=== PATIENT | female | born 1975 | race Caucasian/White ===

== ENCOUNTER 2019-12-10 07:37 | Outpatient (CLI) | payer BC, SELFPAY ==
--- NOTE | ~2019-12-10 | NM_ITS ---
EXAMINATION: NM bone scan whole body DATE: 12/10/2019 13:47 INDICATION: Prostatic breast cancer TECHNIQUE: 23.6 mCi Tc-99m HDP was administered intravenously. Delayed whole-body scintigrams were o btained. COMPARISON: Bone scan dated 09/05/[address] dated 12/10/2019. FINDINGS: Significant interval progression in now multiple numerous scattered subtle foci of increased uptake i ncluding numerous lesions in the spine, sternum, ribs and pelvis. A few additional lesions in the sku ll, mandible and right clavicle, proximal bilateral femurs, proximal right humerus and likely distal right femur. IMPRESSION: 1. Interval progression in now widespread osseous metastatic disease throughout the axial and appendi cular skeleton. Reviewed, dictated and finalized at location A. CENTER CONSULTANT IMPRESSION: 1. Interval progression in now widespread osseous metastatic disease throughout the axial and appendicular skeleton.
--- NOTE | ~2019-12-10 | CT_ITS ---
EXAMINATION: CT chest abdomen pelvis w con DATE: 12/10/2019 08:44 INDICATION: Metastatic breast cancer TECHNIQUE: Transaxial computed tomographic images of the chest, abdomen, and pelvis were obtained aft er the administration of 100 cc of Omnipaque 350 intravenous contrast. The dose-length product (DLP) was 838.19 mGy-cm. Automated exposure control and iterative reconstruction technique were employed. COMPARISON: 09/05/2019, 09/19/2018 FINDINGS: CHEST CT: The lungs are free of acute opacities. There is no pleural effusion or pneumothorax. No pathologicall y enlarged thoracic lymph nodes are identified. The heart size is normal. Surgical changes are noted in the left breast. There is worsened metastatic disease of the thoracic spine, particularly at T11 a nd T12. ABDOMEN/PELVIS CT: The liver is diffusely low in attenuation when compared with the spleen, consistent with hepatic stea tosis. There is a 9 mm hypoattenuating area in liver segment IVB on image 124 which is not definitely identified on prior examinations. The spleen, pancreas, and adrenal glands are normal. The kidneys a re unremarkable. No pathologically enlarged abdominal or pelvic lymph nodes are identified. There is no free intraperitoneal gas or evidence of bowel obstruction. The appendix is normal. When compared t o the PET/CT from 2018, there is new and worsening metastatic disease lumbar spine and pelvis. A comp ression fracture has developed at L3. There is a chronic compression fracture of L4. IMPRESSION: 1. New 9 mm hypoattenuating lesion of the right hepatic lobe of unclear etiology, possibly metastatic disease. 2. Worsening osseous metastatic disease. Reviewed, dictated and finalized at location A. T SECURITY OFFICER IMPRESSION: 1. New 9 mm hypoattenuating lesion of the right hepatic lobe of unclear etiolog y, possibly metastatic disease. 2. Worsening osseous metastatic disease.
[2019-12-10 08:28] LABS: Blood Urea Nitrogen 18 mg/dL (8-26); Estimated Glomerular Filt Rate 44
== END 2019-12-10 07:38 | disposition home or self-care (01) ==
LOC: ANHIMG 07:45
PROVIDERS: Visit Provider Internal Medicine Hematology & Oncology
DX: C50.919 Malignant neoplasm of unspecified site of unspecified female breast (principal); C79.51 Secondary malignant neoplasm of bone; K76.9 Liver disease, unspecified
CPT/HCPCS: 71260; 74177; 78306; A9561; Q9967

== ENCOUNTER 2019-12-26 17:39 | Inpatient (IN) | payer BC, SELFPAY ==
--- NOTE | ~2019-12-26 | XR_ITS ---
EXAMINATION: XR chest 1V portable 12/26/2019 18:21 INDICATION: Liver. History of breast cancer. PROCEDURE: AP portable chest COMPARISON: No prior studies for comparison. FINDINGS: The lungs are clear. The cardiomediastinal silhouette is within normal limits. There are no pleural effusions. There is no pneumothorax suspected. IMPRESSION: 1: NO ACUTE CARDIOPULMONARY DISEASE. Reviewed, dictated and finalized at location A.
--- NOTE | ~2019-12-26 | CT_ITS ---
EXAMINATION: CTA chest PE protocol DATE: 12/26/2019 23:59 INDICATION: Atrial fibrillation with rapid ventricular response. Metastatic breast cancer. TECHNIQUE: Computed tomography angiography (CTA) of the chest was performed with 100 mL Omnipaque-350 intravenous contrast timed to evaluate the pulmonary arteries. Coronal maximum intensity projection 3D-reconstructions were created by the technologist. Automated exposure control and iterative reconst ruction technique were employed. Exam dose: 549.69 mGy-cm total exam DLP. COMPARISON: 12/26/2019 portable AP chest 12/10/2019 CT chest abdomen pelvis FINDINGS: The pulmonary arteries are moderately opacified with contrast material, without evidence of pulmonary embolism. No thoracic aortic aneurysm or dissection. Normal heart size. No pericardial or pleural effusion. No pulmonary infiltrate or consolidation or pulmonary mass lesion is detected. Hepatic steatosis. Incidentally noted is some nonspecific perinephric stranding and heterogeneous enhancement of the upp er pole of the left kidney; recommend clinical correlation for pyelonephritis. There is metastatic disease of the skeleton involving particularly lower thoracic vertebrae., With ev idence of sternal and rib involvement as well. IMPRESSION: No evidence of pulmonary embolism Hepatic steatosis Osseous metastatic disease Cannot exclude pyelonephritis on the left Reviewed, dictated and finalized at Location A. Reviewed, dictated and finalized at location A.
--- NOTE | 2019-12-26 17:41 | ED.BACK ---
HPI - Back Pain/Injury General Chief Complaint: Back Pain/Injury Stated Complaint: BACK PAIN Time Seen by Provider: 12/26/19 17:41 Source: patient Mode of arrival: EMS Limitations: no limitations History of Present Illness HPI Narrative: A 44 y/o female presents to the ED, via EMS, with c/o severe lower back pain. Pt states that she has a diagnosis of metastatic breast cancer with multiple mets to her vertebra. Dr. Mcclelland is her oncologist, and she is currently prescribed Tramadol and muscle relaxers with no relief. Pt reports rt hip pain, but denies ABD pain. MD elicited complaint: back pain (Lower) Pertinent past history: other (Cancer) Severity: severe Location: right lower back and left lower back Relieving factors: none Associated symptoms: other (Right hip pain) Treatments prior to arrival: other (Tramadol, muscle relaxers) Related Data Home Medications Medication Instructions Recorded Confirmed alprazolam 0.25 mg PO DAILY PRN 12/25/19 12/27/19 chlorhexidine gluconate 15 ml BUCCAL BID PRN 12/25/19 12/27/19 clobetasol-emollient 1 applic TOPICAL BID 12/25/19 12/27/19 denosumab [Xgeva] 120 mg SUBCUT ONCE 12/25/19 12/27/19 everolimus (antineoplastic) 10 mg PO DAILY 12/25/19 12/27/19 [Afinitor] letrozole 2.5 mg PO DAILY 12/25/19 12/27/19 melatonin 20 mg PO HS PRN 12/25/19 12/27/19 metoprolol succinate 50 mg PO DAILY 12/25/19 12/27/19 venlafaxine 75 mg PO DAILY 12/25/19 12/26/19 cyclobenzaprine 20 mg Q8H PRN 12/26/19 12/26/19 hydrocodone-acetaminophen 1 tablet PO TID PRN 12/26/19 12/27/19 Allergies Allergy/AdvReac Type Severity Reaction Status Date / Time prochlorperazine Allergy Intermediate Other Verified 06/12/18 14:08 latex Allergy Unknown Itching Verified 06/12/18 14:08 Review of Systems Review of Systems: All systems reviewed & are unremarkable except as noted in HPI and below Gastrointestinal: Gastrointestinal: Denies abdominal pain Musculoskeletal: Musculoskeletal: Reports back pain (Lower) and Reports arthralgias (Right hip) [facility] Past Medical History Medical History (Updated 12/27/19 @ 09:52 by Anaya Hernandez MD) Bone metastasis Bone scan December 10, 2019 demonstrated increased uptake in lesions of the spine, sternum, ribs and pelvis, additional lesions in the skull, mandible, right clavicle, proximal bilateral femurs, proximal right humerus and distal right femur Depression Hepatic metastases CT of the chest abdomen pelvis October 09, 2020 demonstrated new 9 mm hypoattenuating lesion the right hepatic lobe of unclear etiology possibly metastatic disease, worsening osseous metastatic disease Hypertension Metastatic breast cancer Diagnosed March 2018 Pathologic compression fracture of lumbar vertebra L3 and L4 Surgical History Surgical History (Updated 12/27/19 @ 03:02 by Amada Campos DO) No pertinent past surgical history Family History Family History (Updated 12/27/19 @ 03:02 by Amada Campos DO) Mother Vulvar cancer Hypertension Father Heart disease Cerebrovascular accident Social History Social History (Updated 12/27/19 @ 03:04 by Amada Campos DO) Smoking status: Never smoker Tobacco type: cigars Additional smoking assessment comments: Smokes a cigar once or twice a year. Alcohol intake: current Drinks per week: 0 Alcohol use details: In the distant past she would use alcohol on occasion and in moderation. Since her breast cancer diagnosis has not drank alcohol at all. Substance use: never Living arrangements: with family Additional living arrangements comments: The patient lives with her of 8 years and her youngest child. Children are ages 9 and 19. Her older son lives with his dad. 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 Gender identity (if verbalized by the patient): Female Spiritual care concerns: No Ag
[2019-12-26 17:51] VITALS: BP 155/94; PULSE 162; RESP 16; TEMP 36.6; O2SAT 95
--- NOTE | 2019-12-26 18:06 | ECG_ITS ---
Measurements Intervals [place] Rate: 151 P: 63 MD: 123 QRS: 19 QRSD: 84 T: 50 QT: 321 QTc: 510 Interpretive Statements SINUS TACHYCARDIA NONSPECIFIC ST & T-WAVE ABNORMALITY- DIFFUSE LEADS BASELINE WANDER- II, III, V4-V6 ABNORMAL ECG Electronically Signed On 12-27-2019 6:56:01 CDT by Greg Stone D.O.
[2019-12-26] MEDS: METOCLOPRAMIDE HCL INJ 10 MG/2 ML VIAL IV PUSH (18:18)
[2019-12-26] MEDS: SODIUM CHLORIDE 0.9% IV 1,000 ML 999 ML IV CONT ×2 (18:19→20:37)
[2019-12-26 18:22] LABS: Basophils Absolute Auto 0.1 K/mm3 (0.0-0.1); Basophils Percent Auto 1.1 % (0.2-1.2); Hematocrit 39.2 % (37.0-47.0); Hemoglobin 13.3 g/dL (12.0-15.0); Immature Granulocyte Absolute 0.07 K/mm3 (0.00-0.031); Immature Granulocyte Percent A 1.5 % (0-0.5); Lymphocytes Absolute Auto 1.38 K/mm3 (0.9-3.2); Lymphocytes Percent Auto 30.4 % (18.3-44.2); Mean Corpuscular HGB Conc 33.9 g/dl (32-36); Mean Corpuscular Volume 97.3 fl (80-100); Mean Platelet Volume 10.2 fl (7.4-10.4); Monocytes Absolute Auto 0.4 K/mm3 (0.1-0.6); Monocytes Percent Auto 7.9 % (2.6-8.5); Neutrophils Absolute Auto 2.7 K/mm3 (1.3-6.7); Neutrophils Percent Auto 59.1 % (45.5-73.1); Platelet Count Result 227 k/mm3 (150-375); Red Blood Count 4.03 M/mm3 (4.2-5.4); Red Cell Distribution Width 15.9 % (11.5-14.5); White Blood Count 4.5 K/mm3 (4.5-10.0)
[2019-12-26 18:29] LABS: Prothrombin Time 12.5 Seconds (11.1-14.7)
[2019-12-26 18:30] LABS: Partial Thromboplastin Time 29.7 SECONDS (22.3-36.8)
[2019-12-26 18:31] LABS: Lactic Acid Reflex 1.4 mmol/L (0.7-2.1)
[2019-12-26 18:45] LABS: Alanine Aminotransferase 29 U/L (4-35); Alkaline Phosphatase 127 U/L (38-126); Aspartate Amino Transferase 53 U/L (14-36); Bilirubin,Total 0.6 mg/dL (0.2-1.3); Blood Urea Nitrogen 27 mg/dL (7-17); Calcium 10.8 mg/dL (8.4-10.2); Carbon Dioxide 26 mmol/L (22-30); Chloride 96 mmol/L (98-107); Estimated CRCL calculation 67 ml/min; Estimated Glomerular Filt Rate 54; Glucose 145 mg/dL (65-105); Potassium 3.7 mmol/L (3.4-5.0); Sodium 134 mmol/L (137-145)
[2019-12-26] MEDS: MORPHINE SULFATE 4 MG/ML INJ IV PUSH (19:09)
[2019-12-26 19:33] LABS: CRP > 45.0 mg/dL (<1.0)
--- NOTE | 2019-12-26 20:00 | PC.NURSE ---
Tried to cath pt 2 times without success. Will inform
[2019-12-26 21:09] VITALS: BP 128/80; PULSE 139; RESP 13
[2019-12-26] MEDS: HYDROMORPHONE HCL 1 MG/ML INJ 0.5 MG IV PUSH (21:50)
[2019-12-26 22:00] VITALS: PULSE 146
[2019-12-26 22:18] LABS: Add Urine Microscopic? YES; Appearance Urine Cloudy (Clear); Bacteria Urine 1+ /hpf; Bilirubin Urine Negative (Negative); Blood Urine 3+ (Negative); Color Urine Yellow (Yellow); Glucose Urine UA Negative (Negative); Ketones Urine Negative (Negative); Leukocyte Esterase Ur 3+ LEU/UL (Negative); Mucus Urine Rare /lpf; Nitrate Urine Positive (Negative); Protein Urine 1+ mg/dL (Negative); Specific Grav Ur 1.015 (1.001-1.035); Squamous Epithelial Cell Urine Rare /hpf (Few); Urobilinogen Urine Negative mg/dL (<2.0); WBC Urine >75 /hpf
[2019-12-26 22:26] VITALS: BP 226/191; PULSE 148; RESP 24; TEMP 37.3; O2SAT 99; BMI 32.8
[2019-12-26] MEDS: DEXAMETHASONE SOD PHOS INJ 4 MG/ML VIAL IV PUSH (22:43)
--- NOTE | 2019-12-26 23:08 | PM.IMHP ---
H&P: [facility] History of Present Illness Chief complaint: breast cancer with bone metastsis,urinary tract in Narrative: Date and time of patient contact: 12/26/2019 at 10:30 p.m. Becca Burden is a 44 year old female with a past medical history of depression, hypertension and metastatic breast cancer to the bone who presented to the ER due to intractable back pain. The patient has multiple metastatic lesions to her spine. She had a repeat bone scan and CT scan and mid November which demonstrated worsening metastatic disease. The patient had been taking tramadol 50 mg and Flexeril 20 mg as needed for pain. Her pain medication was recently changed today to [place] but she had not yet filled the prescription. Her pain is unrelieved despite these medications. She also has some pain in her right hip. The patient has been having difficulty with urinary incontinence. She states that she will have to go to the bathroom but cannot get up and move fast enough to get to the bathroom due to her pain. She denies any cough, congestion, fevers or chills. She has not noticed any palpitations, shortness of breath or orthopnea. She does snore but has never been tested for sleep apnea. She denies any paresthesias or leg weakness. Her back pain is severe and 10/10 in intensity. It is made worse with trying to get up and ambulate or with movement. Her pain is currently a 5/10 intensity after receiving half a mg of Dilaudid in the ER and 2.5 mg IV of Valium x1. The patient reports she also has pain in her right hip/pelvis region of her abdomen. At the time of her diagnosis she had multiple metastatic lesions. She never had a lumpectomy or mastectomy. Review of Systems Review of Systems: Narrative: Except as documented in the HPI, all other systems were reviewed and are negative. [facility] Past Medical History Medical History (Updated 12/27/19 @ 03:16 by Amada Campos DO) Bone metastasis Bone scan December 10, 2019 demonstrated increased uptake in lesions of the spine, sternum, ribs and pelvis, additional lesions in the skull, mandible, right clavicle, proximal bilateral femurs, proximal right humerus and distal right femur Depression Hepatic metastases CT of the chest abdomen pelvis October 09, 2020 demonstrated new 9 mm hypoattenuating lesion the right hepatic lobe of unclear etiology possibly metastatic disease, worsening osseous metastatic disease Hypertension Metastatic breast cancer Diagnosed March 2018 Pathologic compression fracture of lumbar vertebra L3 and L4 Surgical History Surgical History (Updated 12/27/19 @ 03:02 by Amada Campos DO) No pertinent past surgical history Family History Family History (Updated 12/27/19 @ 03:02 by Amada Campos DO) Mother Vulvar cancer Hypertension Father Heart disease Cerebrovascular accident Social History Social History (Updated 12/27/19 @ 03:04 by Amada Campos DO) Smoking status: Never smoker Tobacco type: cigars Additional smoking assessment comments: Smokes a cigar once or twice a year. Alcohol intake: current Drinks per week: 0 Alcohol use details: In the distant past she would use alcohol on occasion and in moderation. Since her breast cancer diagnosis has not drank alcohol at all. Substance use: never Living arrangements: with family Additional living arrangements comments: The patient lives with her of 8 years and her youngest child. Children are ages 9 and 19. Her older son lives with his dad. 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 Gender identity (if verbalized by the patient): Female Spiritual care concerns: No Agree to blood products: Yes Meds Home Medications and Allergies Home Medications Medication Instructions Recorded Confirmed Type alprazolam 0.25 mg PO DAILY PRN 12/25/19 12/27/19 History c
[2019-12-27] VITALS (12 sets, daily range): BP systolic 121–154; BP diastolic 75–98; PULSE 110–149; RESP 16–22; TEMP 36.4–37.3; O2SAT 90–99; BMI 33.0
--- NOTE | 2019-12-27 00:35 | ADMGEN ---
This patient, Becca Burden, was admitted to IMU Room 214-01. Patient/family oriented to hospital policies and general routines including ID bracelet, bed and alarms, visiting hours, pain management, procedures, bathroom and other care routines, personal items, smoking policy, room service/diet, and visiting hours. Valuables list has been completed. Information on how to activate the Rapid Response Team has been discussed. Patient/Family are encouraged to report perceived risks to care and to ask questions if they do not understand what they are told or what they should do.
[2019-12-27] MEDS: CYCLOBENZAPRINE HCL 10 MG TABLET 20 MG PO ×4 (00:38→21:17)
[2019-12-27] MEDS: LACTATED RINGERS 1,000 ML 125 ML IV CONT ×3 (00:38→21:16)
[2019-12-27 05:17] LABS: Basophils Percent Auto 0.3 % (0.2-1.2); Hematocrit 25.7 % (37.0-47.0); Hemoglobin 8.5 g/dL (12.0-15.0); Immature Granulocyte Absolute 0.19 K/mm3 (0.00-0.031); Immature Granulocyte Percent A 3.3 % (0-0.5); Lymphocytes Absolute Auto 1.48 K/mm3 (0.9-3.2); Lymphocytes Percent Auto 25.8 % (18.3-44.2); Mean Corpuscular HGB Conc 33.1 g/dl (32-36); Mean Corpuscular Hemoglobin 32.4 pg (26-34); Mean Corpuscular Volume 98.1 fl (80-100); Mean Platelet Volume 9.6 fl (7.4-10.4); Monocytes Absolute Auto 0.4 K/mm3 (0.1-0.6); Monocytes Percent Auto 6.6 % (2.6-8.5); Neutrophils Absolute Auto 3.7 K/mm3 (1.3-6.7); Nucleated Red Blood Cells Perc 0.3 % (0.0-0.2); Platelet Count Result 210 k/mm3 (150-375); Red Blood Count 2.62 M/mm3 (4.2-5.4); Red Cell Distribution Width 15.9 % (11.5-14.5); White Blood Count 5.7 K/mm3 (4.5-10.0)
[2019-12-27 05:29] LABS: Alanine Aminotransferase 25 U/L (4-35); Albumin Level 3.5 g/dL (3.5-5.1); Alkaline Phosphatase 101 U/L (38-126); Aspartate Amino Transferase 47 U/L (14-36); Bilirubin,Total 0.5 mg/dL (0.2-1.3); Blood Urea Nitrogen 19 mg/dL (7-17); Calcium 9.6 mg/dL (8.4-10.2); Carbon Dioxide 26 mmol/L (22-30); Chloride 100 mmol/L (98-107); Estimated CRCL calculation 82 ml/min; Estimated Glomerular Filt Rate > 60; Glucose 174 mg/dL (65-105); Potassium 3.8 mmol/L (3.4-5.0); Sodium 135 mmol/L (137-145)
--- NOTE | 2019-12-27 06:00 | ECG_ITS ---
Measurements Intervals [place] Rate: 124 P: 62 OK: 120 QRS: 28 QRSD: 86 T: 58 QT: 404 QTc: 581 Interpretive Statements SINUS TACHYCARDIA NONSPECIFIC T-WAVE ABNORMALITY- ANT/INF LEADS BASELINE WANDER- I, II, V2-V3 ABNORMAL ECG Electronically Signed On 12-27-2019 11:43:09 CDT by Greg Stone D.O.
[2019-12-27] MEDS: LETROZOLE (*CHEMO) 2.5 MG TABLET PO (08:27)
[2019-12-27] MEDS: METOPROLOL SUCCINATE EXT REL 50 MG TABCR PO (08:27)
[2019-12-27] MEDS: VENLAFAXINE HCL XR 75 MG CAP.ER.24H PO (08:27)
--- NOTE | 2019-12-27 09:45 | PM.IMPN ---
Progress Note: A&P Assessment and Plan (1) Pyelonephritis: Code(s): N12 - Tubulo-interstitial nephritis, not specified as acute or chronic Status: Acute Assessment and Plan: CTA chest with nonspecific perinephric stranding and heterogeneous enhancement of they upper pole of the left kidney with UA suggestive of urinary tract infection. Clinically consistent with pyelonephritis. Urine and blood cultures are pending. Will continue IV ceftriaxone while awaiting final results. Continue IV fluids. Transfer to medical floor as stable. (2) Sepsis: Qualifiers: Sepsis acute organ dysfunction status: without acute organ dysfunction Sepsis type: sepsis due to unspecified organism Qualified Code(s): A41.9 - Sepsis, unspecified organism Code(s): A41.9 - Sepsis, unspecified organism Status: Acute Assessment and Plan: Criteria met on admission. Result of pyelonephritis. Cultures pending as noted above. Continue IV ceftriaxone for now. (3) Sinus tachycardia: Code(s): R00.0 - Tachycardia, unspecified Status: Acute Assessment and Plan: Likely due to combination of dehydration and sepsis. Was started on IV diltiazem in ER but now discontinued. Telemetry reviewed on 12/27/2019 with persistent sinus tachycardia but heart rate 110s to 120 occasionally. Will not restart diltiazem at this time but continue to monitor. Is on metoprolol already for hypertension. Will monitor clinically. Should continue to improve with treatment of infection. (4) Metastatic breast cancer: Code(s): C50.919 - Malignant neoplasm of unspecified site of unspecified female breast Status: Acute Assessment and Plan: Patient feels pain actually already improved with treatment she is receiving for infection. Has been seen by Dr. Brian for palliative radiation therapy but had not yet started. Will continue Flexeril here. Will allow home hydrocodone acetaminophen if needed. Continue home everolimus if able to bring in. Will monitor. (5) Bone metastasis: Code(s): C79.51 - Secondary malignant neoplasm of bone Status: Acute Assessment and Plan: Disease metastatic to bone. Continue pain medication as noted above. (6) Hypertension: Qualifiers: Hypertension type: essential hypertension Qualified Code(s): I10 - Essential (primary) hypertension Code(s): I10 - Essential (primary) hypertension Status: Acute Assessment and Plan: Blood pressure reviewed on 12/27/2019 with mild elevation. Will continue metoprolol. Will monitor. (7) DVT prophylaxis: Code(s): Z29.9 - Encounter for prophylactic measures, unspecified Status: Acute Assessment and Plan: SCDs. Time Spent With Patient Time with patient: 15 - 25 minutes Subjective Date/time seen: 12/27/19 09:45 Interval history: Date of Service: 12/27/2019. Admitted with pyelonephritis, sepsis. Patient with known breast cancer. Already feeling better overall. No current chest pain palpitations. No shortness of breath. No abdominal pain. Denies current urinary symptoms. Review of Systems Review of Systems: Narrative: Feeling better. Constitutional: Constitutional: Denies chills and Denies fever(s) ENT: Denies nasal congestion and Denies nasal discharge Cardiovascular: Cardiovascular: Denies chest pain and Denies palpitations Respiratory: Respiratory: Denies dyspnea Gastrointestinal: Gastrointestinal: Denies abdominal pain, Denies nausea and Denies vomiting Genitourinary: Genitourinary: Denies hematuria Musculoskeletal: Musculoskeletal: Reports back pain Integumentary/Breasts: Skin/Breast: Denies rash Neurologic: Denies headache(s) Psychiatric: Psychiatric: Denies anxiety, Denies confusion and Denies depression Exam Narrative: Exam Narrative: Awake and alert. Const: General: no acute distress HENMT: Mouth: Yes moist mucous membranes Neck:
[2019-12-27 17:41] LABS: Immature Reticulocyte Fraction 14.7 % (3.0-15.9); Reticulocyte Hemoglobin Conten 30.9 pg (28.2-35.7); Reticulocyte Percent 0.88 % (0.7-4.3); Reticulocytes Absolute 0.02 B/L (32.2-175.7)
[2019-12-27 17:53] LABS: Lactate Dehydrogenase 585 U/L (313-618)
--- NOTE | 2019-12-27 18:45 | PC.NURSE ---
This patient, Becca Burden, was transferred to [ [id number]] on 12/27/19 at 1859. Personal belongings sent with patient. Belongings list checked and signed with receiving [ ]. Report given to [Aury @ [phone] ]. Appropriate documentation sent with patient.
[2019-12-27 18:56] LABS: Iron 68 ug/dL (37-170)
--- NOTE | 2019-12-27 18:58 | PC.NURSE ---
transfer from IMU on today to room 244.Resting in bed instructed to call for assistance as needed call light in reach.
[2019-12-27 19:06] LABS: Percent Iron Saturation 28 % (20-50)
--- NOTE | 2019-12-27 23:23 | CONS_ITS ---
DATE OF CONSULTATION: 12/27/2019 REASON FOR CONSULTATION: Metastatic breast cancer. HISTORY OF PRESENTING ILLNESS: This is a 44-year-old pleasant female with history of metastatic breast cancer with bone involvement. She was on endocrine therapy with Femara along with Ibrance since the diagnosis. She was also receiving Lupron injections. She started having worsening of bony metastasis based on the last CT scan done in November. Treatment was switched to Afinitor orally. The patient was also supposed to start Faslodex treatment in my clinic. The patient now came into the ER with complaint of worsening bone pain, especially involving the right side of the hip. She is also going to start radiation therapy treatment. She was on tramadol and Flexeril without much improvement. She was also diagnosed to have urinary tract infection. She denies any fevers and chills. She is feeling much better. Her hemoglobin has dropped since she was admitted to the hospital. She denies any bleeding and bruising. Denies any other complaint. REVIEW OF SYSTEMS: A 12-point review of system was reviewed and as per HPI, otherwise negative. PAST MEDICAL HISTORY: Metastatic breast cancer with bone involvement, depression, hypertension, pathological compression fracture of L3 and L4. PAST SURGICAL HISTORY: None. FAMILY HISTORY: Positive for cardiovascular disease. SOCIAL HISTORY: The patient denies any history of smoking. She drinks occasionally. The patient is . HOME MEDICATIONS: Reviewed. ALLERGIES: REVIEWED. PHYSICAL EXAMINATION: GENERAL: This patient is a well-developed, well-nourished female, in no apparent distress. Alert and oriented. VITAL SIGNS: Per nursing note. HEENT: Normocephalic, atraumatic. Clear oropharynx. LUNGS: Clear to auscultation bilaterally. CARDIOVASCULAR: Regular rate and rhythm. No murmurs. ABDOMEN: Soft, nontender, nondistended. Bowel sounds are positive in all 4 quadrants. No hepatosplenomegaly. EXTREMITIES: No edema. NEURO: Grossly intact. LABORATORY DATA: WBC 5.7, hemoglobin 8.5, MCV 98, platelet 210,000, neutrophils 64%. LDH 585, total bilirubin 0.6. ASSESSMENT AND PLAN: 1. Metastatic breast cancer with bone involvement. The patient had progressive disease based on the last bone scan. She has been complaining of more right leg and right hip pain. She has been referred to Radiation-Oncology for palliative radiation therapy treatment, which she is supposed to start soon. I have changed her treatment to Afinitor and Faslodex. The patient will follow up in the office to start Faslodex injection. 2. Urinary tract infection. The patient is on Rocephin and already feeling better. 3. Anemia. Could be multifactorial due to Afinitor and some element of dilutional anemia. I will check iron studies, vitamin B12 level. The patient will follow up with me in the office for further management of her metastatic breast cancer. NAVDEEP Ivan VÁZQUEZ M.D. FOXER FOXER D I MT: Ricarda
[2019-12-28 04:45] LABS: Hematocrit 25.6 % (37.0-47.0); Hemoglobin 8.4 g/dL (12.0-15.0); Mean Corpuscular HGB Conc 32.8 g/dl (32-36); Mean Corpuscular Hemoglobin 32.7 pg (26-34); Mean Corpuscular Volume 99.6 fl (80-100); Platelet Count Result 215 k/mm3 (150-375); Red Blood Count 2.57 M/mm3 (4.2-5.4); Red Cell Distribution Width 15.9 % (11.5-14.5); White Blood Count 6.2 K/mm3 (4.5-10.0)
[2019-12-28 05:00] LABS: Blood Urea Nitrogen 20 mg/dL (7-17); Calcium 9.2 mg/dL (8.4-10.2); Carbon Dioxide 31 mmol/L (22-30); Chloride 100 mmol/L (98-107); Estimated CRCL calculation 82 ml/min; Estimated Glomerular Filt Rate > 60; Glucose 116 mg/dL (65-105); Potassium 3.7 mmol/L (3.4-5.0); Sodium 136 mmol/L (137-145)
[2019-12-28] MEDS: LACTATED RINGERS 1,000 ML 125 ML IV CONT (05:15)
[2019-12-28] MEDS: CYCLOBENZAPRINE HCL 10 MG TABLET 20 MG PO ×3 (05:42→21:32)
[2019-12-28 06:00] VITALS: BP 136/90; PULSE 101; RESP 16; TEMP 36.4; O2SAT 98
[2019-12-28 09:43] VITALS: PULSE 102
[2019-12-28] MEDS: METOPROLOL SUCCINATE EXT REL 50 MG TABCR PO (09:43)
--- NOTE | 2019-12-28 12:23 | PM.IMPN ---
Progress Note: A&P Assessment and Plan (1) Pyelonephritis: Code(s): N12 - Tubulo-interstitial nephritis, not specified as acute or chronic Status: Acute Assessment and Plan: CTA chest with nonspecific perinephric stranding and heterogeneous enhancement of they upper pole of the left kidney with UA suggestive of urinary tract infection. Clinically consistent with pyelonephritis although urine culture is negative. Blood cultures are now positive for Gram-positive cocci. Will decrease IV fluids. Will leave IV ceftriaxone due to findings still consistent with pyelonephritis despite negative urine culture. Will continue to monitor. (2) Sepsis: Qualifiers: Sepsis acute organ dysfunction status: without acute organ dysfunction Sepsis type: sepsis due to unspecified organism Qualified Code(s): A41.9 - Sepsis, unspecified organism Code(s): A41.9 - Sepsis, unspecified organism Status: Acute Assessment and Plan: Criteria met on admission. [place] to be result of pyelonephritis but culture results as noted above with blood cultures now growing Gram positive cocci. Will add IV vancomycin while awaiting further identification. Advised patient may need infectious disease consult depending on culture results. (3) Sinus tachycardia: Code(s): R00.0 - Tachycardia, unspecified Status: Acute Assessment and Plan: Likely due to combination of dehydration and sepsis. Was started on IV diltiazem in ER but now discontinued. No longer on telemetry. Heart rate improved although still increased at times. Continue home metoprolol. Will monitor. (4) Metastatic breast cancer: Code(s): C50.919 - Malignant neoplasm of unspecified site of unspecified female breast Status: Acute Assessment and Plan: Patient feels pain actually already improved with treatment she is receiving for infection. Has been seen by Dr. Brian for palliative radiation therapy but had not yet started. Will continue Flexeril here. Will allow home hydrocodone acetaminophen if needed. Continue home everolimus if able to bring in. Will monitor. (5) Bone metastasis: Code(s): C79.51 - Secondary malignant neoplasm of bone Status: Acute Assessment and Plan: Disease metastatic to bone. Continue pain medication as noted above. (6) Hypertension: Qualifiers: Hypertension type: essential hypertension Qualified Code(s): I10 - Essential (primary) hypertension Code(s): I10 - Essential (primary) hypertension Status: Acute Assessment and Plan: Blood pressure reviewed on 12/28/2019 with mild elevation at times. Will advance metoprolol. Will continue to monitor. (7) DVT prophylaxis: Code(s): Z29.9 - Encounter for prophylactic measures, unspecified Status: Acute Assessment and Plan: SCDs. Time Spent With Patient Time with patient: 15 - 25 minutes Subjective Date/time seen: 12/28/19 12:23 Interval history: Date of Service: 12/28/2019. Admitted with pyelonephritis, sepsis. Patient with known breast cancer. Sister present today. Feeling better. Still has back pain at times. No nausea or vomiting. No chest pain. No shortness of breath. Review of Systems Review of Systems: Narrative: Feeling better. Constitutional: Constitutional: Denies chills and Denies fever(s) ENT: Denies nasal congestion and Denies nasal discharge Cardiovascular: Cardiovascular: Denies chest pain and Denies palpitations Respiratory: Respiratory: Denies dyspnea Gastrointestinal: Gastrointestinal: Denies abdominal pain, Denies nausea and Denies vomiting Genitourinary: Genitourinary: Denies hematuria Musculoskeletal: Musculoskeletal: Reports back pain Integumentary/Breasts: Skin/Breast: Denies rash Neurologic: Denies confusion and Denies headache(s) Psychiatric: Psychiatric: Denies anxiety, Denies confusion and Denies depression Exam Narrati
[2019-12-28] MEDS: LACTATED RINGERS 1,000 ML 75 ML IV CONT (13:42)
[2019-12-28] MEDS: LOPERAMIDE HCL 2 MG CAPSULE PO ×2 (13:42→16:46)
[2019-12-28 14:00] VITALS: BP 136/96; PULSE 120; RESP 16; TEMP 37.7; O2SAT 98
[2019-12-28] MEDS: LETROZOLE (*CHEMO) 2.5 MG TABLET PO (16:43)
[2019-12-28] MEDS: VENLAFAXINE HCL XR 75 MG CAP.ER.24H PO (16:43)
--- NOTE | 2019-12-28 17:05 | WPDONCPN ---
Progress Note: A/P - Additional Plan Metastatic breast cancer with bone involvement. Patient is now on Afinitor. She will start treatment with Faslodex as an outpatient. Patient will continue letrozole. Bacteremia/pyelonephritis. Patient is on Rocephin and remains afebrile. Blood culture positive for gram-positive cocci. Anemia. Iron studies and B12 came back normal. This is anemia of chronic disease and malignancy. She may need blood transfusion on as-needed basis. I will follow up in the office for further management. - Time Spent With Patient Total time spent is greater than 50% in coordination of care (as documented) at patient's floor/unit and/or counseling patient: 15 - 25 minutes Subjective Interval history: Metastatic breast cancer Bacteremia UTI Anemia Review of Systems - Review of Systems Patient is feeling better. Her pain is under good control. Denies any fevers and chills. Denies any bleeding and bruising. - Neurologic Denies confusion, Denies headache(s) Exam Vital signs: Temp Pulse Resp BP Pulse Ox 37.7 C H 120 H 16 136/96 H 98 12/28/19 14:00 12/28/19 14:00 12/28/19 14:00 12/28/19 14:00 12/28/19 14:00 Narrative: Lungs are clear to auscultation bilaterally Cardiovascular regular rate rhythm no murmurs Abdomen soft nontender nondistended bowel sounds are positive Extremities no edema PN: Objective Data - Labs CBC & Chem 7: 12/28/19 04:37 12/28/19 04:37 Labs: Laboratory Results - last 24 hr 12/27/19 12/27/19 12/27/19 17:35 17:35 17:35 WBC RBC Hgb Hct MCV MCH MCHC RDW Plt Count MPV Absolute Retic 0.02 L Percent Retic 0.88 Immature Retic Fraction 14.7 Retic Hgb Content 30.9 Sodium Potassium Chloride Carbon Dioxide BUN Creatinine Estim Creat Clear Calc Estimated GFR Glucose Calcium Magnesium Iron 68 TIBC 243 L % Saturation 28 Ferritin 967.00 H Lactate Dehydrogenase Vitamin B12 917.0 12/27/19 12/28/19 12/28/19 17:35 04:37 04:37 WBC 6.2 RBC 2.57 L Hgb 8.4 L Hct 25.6 L MCV 99.6 MCH 32.7 MCHC 32.8 RDW 15.9 H Plt Count 215 MPV 10.0 Absolute Retic Percent Retic Immature Retic Fraction Retic Hgb Content Sodium 136 L Potassium 3.7 Chloride 100 Carbon Dioxide 31 H BUN 20 H Creatinine 0.90 Estim Creat Clear Calc 82 Estimated GFR > 60 Glucose 116 H Calcium 9.2 Magnesium 2.0 Iron TIBC % Saturation Ferritin Lactate Dehydrogenase 585 Vitamin B12
--- NOTE | 2019-12-28 18:40 | PHAR ---
HOME MED VERIFICATION AFINITOR EVEROLIMUS 10 MG IN [employer]
[2019-12-28 22:13] VITALS: BP 118/61; PULSE 116; RESP 18; TEMP 36.7; O2SAT 97
[2019-12-29] MEDS: CYCLOBENZAPRINE HCL 10 MG TABLET 20 MG PO ×2 (05:40→13:05)
[2019-12-29] MEDS: LACTATED RINGERS 1,000 ML 75 ML IV CONT (05:43)
[2019-12-29 05:59] LABS: Blood Urea Nitrogen 15 mg/dL (7-17); Calcium 9.1 mg/dL (8.4-10.2); Carbon Dioxide 33 mmol/L (22-30); Chloride 94 mmol/L (98-107); Estimated CRCL calculation 82 ml/min; Estimated Glomerular Filt Rate > 60; Glucose 136 mg/dL (65-105); Potassium 3.2 mmol/L (3.4-5.0); Sodium 132 mmol/L (137-145)
[2019-12-29 06:51] VITALS: BP 136/83; PULSE 86; RESP 20; TEMP 36.4; O2SAT 99
[2019-12-29] MEDS: POTASSIUM CHLORIDE 20 MEQ TABLET 40 MEQ PO (09:17)
[2019-12-29 09:18] VITALS: PULSE 110
[2019-12-29] MEDS: METOPROLOL SUCCINATE EXT REL 25 MG TABCR 75 MG PO (09:18)
--- NOTE | 2019-12-29 13:30 | PM.IMPN ---
Progress Note: A&P Assessment and Plan (1) Pyelonephritis: Code(s): N12 - Tubulo-interstitial nephritis, not specified as acute or chronic Status: Acute Assessment and Plan: CTA chest with nonspecific perinephric stranding and heterogeneous enhancement of they upper pole of the left kidney with UA suggestive of urinary tract infection. Clinically consistent with pyelonephritis although urine culture is negative. Blood cultures are now positive as noted below. Has received IV ceftriaxone x3 days. Discussed with patient. Will discharge home today on oral cefdinir. (2) Sepsis: Qualifiers: Sepsis type: sepsis due to unspecified organism Sepsis acute organ dysfunction status: without acute organ dysfunction Qualified Code(s): A41.9 - Sepsis, unspecified organism Code(s): A41.9 - Sepsis, unspecified organism Status: Acute Assessment and Plan: Criteria met on admission. [place] to be result of pyelonephritis but urine culture negative. Blood cultures positive for Gram-positive cocci with 1 of 2 final with coag-negative staph. Presumptively 2nd culture will also be coagulase-negative staph. Did receive IV vancomycin in past 24 hours. Sending home with oral cefdinir as should cover for urinary issues as well as positive blood cultures. (3) Hypokalemia: Code(s): E87.6 - Hypokalemia Status: Acute Assessment and Plan: Potassium 3.2 today with oral replacement given. Can follow as outpatient. (4) Sinus tachycardia: Code(s): R00.0 - Tachycardia, unspecified Status: Acute Assessment and Plan: Likely due to combination of dehydration and sepsis. Was started on IV diltiazem in ER but has been discontinued. Heart rate improved. Continue home metoprolol. (5) Metastatic breast cancer: Code(s): C50.919 - Malignant neoplasm of unspecified site of unspecified female breast Status: Acute Assessment and Plan: Followed by Dr. Mcclelland and appreciate his input. Has been seen by Dr. Brian as outpatient for palliative radiation therapy but had not yet started. Will continue Flexeril here. Will allow home hydrocodone acetaminophen if needed. Follow-up with oncology as outpatient. (6) Bone metastasis: Code(s): C79.51 - Secondary malignant neoplasm of bone Status: Acute Assessment and Plan: Disease metastatic to bone. Continue pain medication as noted above. (7) Hypertension: Qualifiers: Hypertension type: essential hypertension Qualified Code(s): I10 - Essential (primary) hypertension Code(s): I10 - Essential (primary) hypertension Status: Acute Assessment and Plan: Blood pressure reviewed on 12/29/2019 and improved with increase in metoprolol. Continue current metoprolol. Follow as outpatient. (8) DVT prophylaxis: Code(s): Z29.9 - Encounter for prophylactic measures, unspecified Status: Acute Assessment and Plan: SCDs. Time Spent With Patient Time with patient: 15 - 25 minutes Subjective Date/time seen: 12/29/19 13:30 Interval history: Date of Service: 12/29/2019. Admitted with pyelonephritis, sepsis. Patient with known breast cancer. Feeling much better. Still gets some spasm in the right back but does have known bone metastases. No abdominal pain. No nausea or vomiting. No chest pain. No shortness of breath. Review of Systems Constitutional: Constitutional: Denies chills and Denies fever(s) ENT: Denies nasal congestion and Denies nasal discharge Cardiovascular: Cardiovascular: Denies chest pain and Denies palpitations Respiratory: Respiratory: Denies dyspnea Gastrointestinal: Gastrointestinal: Denies abdominal pain, Denies nausea and Denies vomiting Genitourinary: Genitourinary: Denies hematuria Musculoskeletal: Musculoskeletal: Reports back pain Integumentary/Breasts: Skin/Breast: Denies rash Neurologic: Denies headache(s) Psychi
[2019-12-29 14:00] VITALS: BP 128/92; PULSE 117; RESP 16; TEMP 36.8; O2SAT 96
--- NOTE | 2019-12-29 15:53 | PM.DS ---
DS: Diagnosis Admitting Diagnosis Admitting Diagnosis: Tubulo-interstitial nephritis, not specified as acute or chronic Discharge Diagnosis (1) Pyelonephritis: Code(s): N12 - Tubulo-interstitial nephritis, not specified as acute or chronic Status: Acute (2) Sepsis: Qualifiers: Sepsis acute organ dysfunction status: without acute organ dysfunction Sepsis type: sepsis due to unspecified organism Qualified Code(s): A41.9 - Sepsis, unspecified organism Code(s): A41.9 - Sepsis, unspecified organism Status: Acute Assessment and Plan: (3) Hypokalemia: Code(s): E87.6 - Hypokalemia Status: Acute (4) Sinus tachycardia: Code(s): R00.0 - Tachycardia, unspecified Status: Acute (5) Metastatic breast cancer: Code(s): C50.919 - Malignant neoplasm of unspecified site of unspecified female breast Status: Acute (6) Bone metastasis: Code(s): C79.51 - Secondary malignant neoplasm of bone Status: Acute (7) Hypertension: Qualifiers: Hypertension type: essential hypertension Qualified Code(s): I10 - Essential (primary) hypertension Code(s): I10 - Essential (primary) hypertension Status: Acute DS: Summary Hospital Course Reason for hospitalization: Intractable back pain. Hospital Course: Date of Service of Discharge: December 29, 2019. History of Present Illness: Patient is a pleasant 44-year-old woman with metastatic breast cancer including metastases to the bone, hypertension and depression who presented to the emergency room with intractable back pain. Patient did have recent testing in mid November demonstrating worsening metastatic disease. She has been seen by Dr. Mcclelland for medical oncology and is receiving treatment. She was also seen recently by Dr. Brian for radiation oncology with plan for palliative therapy to help with her back pain but had not yet had chance for treatment. She has been taking tramadol and Flexeril at home as needed. She does report pain in the right hip. She also reports urinary incontinence. No recent fever, sweats or chills. No abdominal pain. No nausea or vomiting. No cough or congestion. In the emergency room, she was noted to have significant pain not relieved with IV medication. Urinalysis was also concerning for possible infection. As result, she was admitted for further evaluation and treatment. Course in Hospital: Patient was initially placed in the IMU on admission. She did have a CTA of the chest performed which revealed no pulmonary embolism but findings concerning for left pyelonephritis. Combined with her urinalysis and increasing back pain, she was started on IV ceftriaxone while awaiting urine culture results. Blood cultures were also drawn. Urine culture did eventually come back as negative but with other clinical findings as well as imaging findings, pyelonephritis was still felt to be cause of some of her back pain patient was continued on the IV ceftriaxone. Blood cultures x2 did start growing Gram-positive cocci with IV vancomycin initiated. Final blood cultures were positive for coagulase-negative staph in both bottles. With both blood culture bottles positive, bacteremia was felt to be true infection. She did receive 3 doses of IV ceftriaxone while in hospital in addition to 1 dose IV vancomycin. Plan discussed with patient to include transition to oral cefdinir for an additional 11 days to complete 2 weeks treatment with antibiotics. She did have immediate improvement of back pain after receiving IV Dilaudid and IV Valium on presentation as well as treatment of infection. She was not requiring IV pain medication by the time of discharge. She did have Flexeril available as needed. Patient to follow-up with both her medical and radiation oncologists after discharge for continuing treatment. She was also noted to have sinus tachycardia on presentation felt to be result o
== END 2019-12-29 15:01 | disposition home or self-care (01) | DRG 872 ==
LOC: ANHED 19:45 → ANHIMU 12-27 11:47 → ANH2MED 12-29 13:41 → ANHIMU 01-02 08:20
PROVIDERS: Internal Medicine Hematology & Oncology; Admitting Provider Internal Medicine; Emergency Provider Emergency Medicine; Visit Provider Hospitalist
DX: A41.9 Sepsis, unspecified organism (principal); N39.0 Urinary tract infection, site not specified; C79.51 Secondary malignant neoplasm of bone; N12 Tubulo-interstitial nephritis, not specified as acute or chronic; E86.0 Dehydration; E87.6 Hypokalemia; I10 Essential (primary) hypertension; C50.919 Malignant neoplasm of unspecified site of unspecified female breast
CPT/HCPCS: 36415; 71045; 71275; 80048; 80053; 81001; 82607; 82728; 83540; 83550; 83605; 83615; 83735; 85025; 85027; 85046; 85610; 85730; 86140; 87040; 87077; 87086; 87186; 93005; 96361; 96365; 96366; 96367; 96375; 99285; A4248; A9270; J0696; J1100; J1170; J1200; J2270; J2765; J3360; J3370; J7030; J7120; Q9967

== ENCOUNTER 2020-03-18 09:50 | Outpatient (CLI) | payer BC, SELFPAY ==
--- NOTE | ~2020-03-18 | PE_ITS ---
EXAMINATION: PET skull to mid thigh DATE: 03/18/2020 12:46 INDICATION: Metastatic breast cancer. TECHNIQUE: Blood glucose level was 147 mg/dL. 8.418 mCi of 18-fluorodeoxyglucose (18-FDG) was adminis tered i.v. Low dose computed tomography (CT) images were acquired from the base of the brain to the p roximal thighs for attenuation correction and anatomic localization. Automated exposure control was e mployed. Dose-length product (DLP) was 804 mGy-cm. Positron emission tomography (PET) images were acq uired in the same distribution. COMPARISON: Chest CT 12/26/2019, CT chest, abdomen, and pelvis 12/10/2019, bone scan 12/10/2019, PET/CT 09/19/2018 FINDINGS: Head/neck: There is a 1.7 x 1.1 cm left internal jugular chain node with maximum SUV of 3.8. There ar e widespread mixed lytic and sclerotic lesions of bone with some areas of increased activity. Chest: There is no pulmonary nodule or pleural effusion. The heart size is normal. No pericardial eff usion. There are no pathologically enlarged lymph nodes. There are widespread mixed lytic and sclerot ic lesions of bone with some areas of increased activity. Again seen is a pathologic compression frac ture of T11. Abdomen/pelvis/proximal thighs: The liver demonstrates interval enlargement and diffusely heterogeneo us attenuation in a pattern that is different from 12/26/19. The liver demonstrates maximum SUV of 4.7 . There are changes of cholecystectomy. The spleen, pancreas, adrenal glands, and kidneys are normal. There are no dilated loops of bowel. There is a small volume of ascites. There are no pathologically enlarged lymph nodes. There are widespread mixed lytic and sclerotic lesions of bone with some areas of increased activity. IMPRESSION: 1. Widespread osseous metastatic disease, stable from 12/10/19. 2. Enlarged high left internal jugular chain node with increased activity, new from 09/19/18, suspicio us for metastatic disease. 3. Diffusely abnormal liver with increased activity with interval change. The differential diagnosis includes passive hepatic congestion, hepatitis, cirrhosis, steatosis, metastatic disease, and Budd-Ch iari syndrome. Reviewed, dictated and finalized at location A. IMPRESSION: 1. Widespread osseous metastatic disease, stable from 12/10/19. 2. Enlarged high left internal jugular chain node with increased activity, new from 09/19/18, suspicious for metastatic disease. 3. Diffusely abnormal liver with increased activity with interval change. The d ifferential diagnosis includes passive hepatic congestion, hepatitis, cirrhosis , steatosis, metastatic disease, and Budd-Chiari syndrome.
[2020-03-18 10:26] LABS: Glucose Point of Care 147 (65-105)
== END 2020-03-18 09:51 | disposition home or self-care (01) ==
LOC: ANHIMG 09:56
PROVIDERS: Visit Provider Internal Medicine Hematology & Oncology
DX: C50.412 Malignant neoplasm of upper-outer quadrant of left female breast (principal); C79.51 Secondary malignant neoplasm of bone; R59.0 Localized enlarged lymph nodes; R93.2 Abnormal findings on diagnostic imaging of liver and biliary tract
CPT/HCPCS: 78815; A9552

== ENCOUNTER 2020-03-29 01:31 | Outpatient (CLI) | payer BC, SELFPAY ==
[2020-03-29 16:42] LABS: SARS-CoV-2 RNA PCR Negative
== END 2020-03-29 01:32 | disposition home or self-care (01) ==
LOC: ANHCOVIDDT 01:31
PROVIDERS: Visit Provider Surgery
DX: Z01.812 Encounter for preprocedural laboratory examination (principal); Z20.828 Contact with and (suspected) exposure to other viral communicable diseases; C50.919 Malignant neoplasm of unspecified site of unspecified female breast
CPT/HCPCS: 87635; C9803; U0003